=== PATIENT | female | born 1965 | race Caucasian/White ===

== ENCOUNTER 2021-11-04 18:15 | Emergency (ER) | payer OTHER, BC | END 2021-11-04 21:23 | disposition home or self-care (01) | LOC: MADERS 18:15 | DX: S16.1XXA Strain of muscle, fascia and tendon at neck level, initial encounter (principal); E78.5 Hyperlipidemia, unspecified; I10 Essential (primary) hypertension; Z79.899 Other long term (current) drug therapy; V49.49XA Driver injured in collision with other motor vehicles in traffic accident, initial encounter | CPT/HCPCS: 70450; 72125 ==